=== PATIENT | female | born 1975 | race Caucasian/White ===

== ENCOUNTER 2018-06-04 10:59 | Emergency (ER) | payer BC ==
[~2018-06-04] VITALS: Ht 152.4 cm; Wt 92.0 kg
[2018-06-04 11:14] VITALS: Ht 152.4 cm; Wt 92.0 kg
[2018-06-04] MEDS ORDERED: HYDROCODONE/APAP (5/325) TAB PO ONE (14:00)
[2018-06-04] MEDS ORDERED: FER325 PO (17:20)
[2018-06-04] MEDS ORDERED: NPH10OT RIGHT EAR (17:20)
[2018-06-04] MEDS ORDERED: AZIT250T PO (17:20)
[2018-06-04] MEDS ORDERED: IBUP-1542 PO (17:20)
--- NOTE | 2018-06-04 17:25 | ERD ---
ER Documentation Chief Complaint Chief Complaint pt is bib self with c/o right ear pain and chills since last night HPI 43-year-old female presents with multiple complaints. She said right ear pain and chills since yesterday. Denies any bleeding or discharge. She said cough congestion for the last week as well. Patient has additional complaint of feeling fatigued and tired. She has a history of chronic anemia due to heavy me nstrual periods due to fibroids by report. Patient states that she is in the process of getting a D&C by her IGNITION EXPERT. She denies any abdominal pain, shortness breath or chest pain. Eyes any bleeding outside of her menstrual periods which are heavy. She states that she is taking iron twice a day. ROS All systems reviewed and are negative except as per history of present illness. Medications Home Meds Active Scripts Ferrous Sulfate* (Ferrous Sulfate*) 325 Mg Tabec, 325 MG PO TID, #90 TAB Prov:CONCHIS CONTRERAS MD 06/04/18 Ibuprofen* (Motrin*) 600 Mg Tab, 600 MG PO Q6, #15 TAB Prov:CONCHIS CONTRERAS MD 06/04/18 Neomycin/Polymyxin/Hydrocort* (Cortisporin* Otic) 10 Ml Susp, 4 DROP RIGHT EAR QID for 7 Days, EA Prov:CONCHIS CONTRERAS MD 06/04/18 Azithromycin* (Zithromax*) 250 Mg Tablet, 250 MG PO .ZPACK DIRECTED, #6 TAB TAKE 500 MG (2 TABS) THE FIRST DAY THEN 250 MG (1 TAB) DAYS 2-5 Prov:CONCHIS CONTRERAS MD 06/04/18 Allergies Allergies: Coded Allergies: No Known Allergy (Unverified , 06/04/18) PMhx/Soc Medical and Surgical Hx: pt denies Medical Hx, pt denies Surgical Hx Hx Alcohol Use: No Hx Substance Use: No Hx Tobacco Use: No Smoking Status: Never smoker Physical Exam Vitals Vital Signs Date Temp Pulse Resp B/P (MAP) Pulse Ox O2 O2 Flow FiO2 Time Delivery Rate 06/04/18 98.8 74 19 103/50 99 Room Air 18:39 (67) 06/04/18 97.9 66 18 99/53 (68) 100 11:14 Physical Exam Const: No acute distress Head: Atraumatic Eyes: Normal Conjunctiva. Pallor of the eyelids. ENT: Normal External Ears, Nose and Mouth. Debris in the right external canal with mild pain with passive range of motion. Decreased light reflex and redness visible behind the debris. No mastoid tenderness. Neck: Full range of motion. No meningismus. Resp: Clear to auscultation bilaterally Cardio: Regular rate and rhythm, no murmurs Abd: Soft, non tender, non distended. Normal bowel sounds Skin: No petechiae or rashes Back: No midline or flank tenderness Ext: No cyanosis, or edema Neur: Awake and alert Psych: Normal Mood and Affect Result Diagram: 06/04/18 1311 06/04/18 1311 Results 24 hrs Laboratory Tests Test 06/04/18 13:11 White Blood Count 12.6 10^3/ul Red Blood Count 4.12 10^6/ul Hemoglobin 6.2 g/dl Hematocrit 24.5 % Mean Corpuscular Volume 59.5 fl Mean Corpuscular Hemoglobin 15.0 pg Mean Corpuscular Hemoglobin Concent 25.3 g/dl Red Cell Distribution Width 19.3 % Platelet Count 572 10^3/UL Mean Platelet Volume 9.6 fl Immature Granulocytes % 0.900 % Neutrophils % % Segmented Neutrophils % (Manual) 83 % Band Neutrophils % (Manual) 6 % Lymphocytes % % Lymphocytes % (Manual) 6 % Reactive Lymphocytes % (Manual) 1 % Monocytes % % Monocytes % (Manual) 3 % Eosinophils % % Basophils % % Basophils % (Manual) 1 % Nucleated Red Blood Cells % 0.0 /100WBC Immature Granulocytes # 0.110 10^3/ul Neutrophils # 10^3/ul Neutrophils # (Manual) 10.5 10^3/ul Band Neutrophils # 0.7 10^3/ul Lymphocytes (Manual) 0.7 10^3/ul Lymphocytes # 10^3/ul Reactive Lymphocytes # 0.1 10^3/ul Monocytes # 10^3/ul Monocytes # (Manual) 0.3 10^3/ul Eosinophils # 10^3/ul Basophils # 10^3/ul Basophils # (Manual) 0.1 10^3/ul Nucleated Red Blood Cells # 10^3/ul Platelet Estimate INCREASED Giant Platelets 1 % Polychromasia 2+ Hypochromasia 2+ Poikilocytosis 2+ Anisocytosis 3+ Microcytosis 3+ Ovalocytes 2+ Stomatocytes 1+ Sodium Level 141 mmol/L Potassium Level 4.5 mmol/L Chloride Level 104 mmol/L Carbon Dioxide Level 25 mmol/L Anion Gap 12 Blood Urea Nitrogen 11 mg/dl Creatinine 0.77 mg/dl Est Glomerular Filtrat Rate mL/min > 60 mL/min Glucose Level 112 mg/dl Calcium Level 9.6 mg/dl Current Medications Medications Dose Sig/Eusebia Start Time Status Last (Trade) Ordered Route PRN Stop Time Admin Dose Reason Admin 1 tab ONCE ONCE 06/04/18 DC 06/04/18 Acetaminophen PO 14:00 14:03 / 06/04/18 14:01 Hydrocodone Bitart ([place] (5/325)) Procedures/MDM Patient request a CBC for evaluation of her fatigue with a history of anemia. Hemoglobin is 6.2. Mild thrombocytosis leukocytosis. Patient agrees to be transfused 1 unit. Patient was stable throughout ER course. EKG: Rate/Rhythm: Normal Sinus Rhythm. Rate equals 69 QRS, ST, T-waves: No changes consistent w/ acute ischemia Impression: No evidence of ischemia or arrhythmia. Impression-normal EKG Has no complaints of chest pain, shortness of breath. She was transfused 1 unit for symptoms of fatigue and sensation of weakness to likely chronic anemia although patient has no appreciable cardiovascular symptomatology. We will treat empirically with findings of otitis media with Zithromax and possible mild otitis externa with Cortisporin. Patient does have IGNITION EXPERT follow-up she is advised to continue follow-up with IGNITION EXPERT for evaluation for D&C or further evaluation of her heavy menstrual periods and fibroids. Patient was advised to increase her iron to 3 times a day return to ER for new or worsening symptoms otherwise with primary care doctor this week. The patient was stable with no new complaints during the ER course. Clinically, there is no current evidence to suggest meningitis, sepsis, acute abdomen, pneumonia, stroke, acute coronary syndrome, pulmonary embolism, aortic dissection or any other emergent condition appearing to require further evaluation or hospitalization. Patient counseled regarding my diagnostic impression and care plan. Prior to discharge all questions answered. Pt agrees with treatment plan and understands strict return precautions. Pt is instructed to follow up with primary care provider within 24- 48 hours. Precautionary instructions provided including instructions to return to the ER if not improving or for any worsening or changing symptoms or concerns. Departure Diagnosis: Primary Impression: Right ear pain Condition: Stable Patient Instructions: Anemia, Iron Deficiency (Adult), Otitis Media, Abx Tx (Adult), External Ear Infection (Adult) Referrals: NO PRIMARY,CARE PHYSICIAN (PCP) Additional Instructions: Recommend take iron 3 times a day. See IGNITION EXPERT for further evaluation and treat ment of vaginal bleeding fibroids.. Will treat for infection as well. Recheck for new or worsening symptoms with primary care doctor. CONCHIS CONTRERAS MD Jun 04, 2018 17:25
[2018-06-04 18:39] VITALS: BP 103/50; PULSE 74; RESP 19
== END 2018-06-04 18:41 | disposition home or self-care (01) ==
LOC: FTE 10:59
DX: H92.01 Otalgia, right ear (principal); R53.83 Other fatigue
CPT/HCPCS: 36430; 80048; 85025; 86850; 86900; 86901; 86920; 99285; P9016; 93005